=== PATIENT | female | born 1980 | race Caucasian/White ===

== ENCOUNTER 2018-08-03 05:56 | Outpatient (CLI) | END 2018-08-03 06:20 | disposition short-term general hospital (02) | LOC: AMBL 05:56 | PROVIDERS: ATTEND Internal Medicine Geriatric Medicine | DX: T40.4X1A Poisoning by other synthetic narcotics, accidental (unintentional), initial encounter (principal); T42.4X1A Poisoning by benzodiazepines, accidental (unintentional), initial encounter; R40.20 Unspecified coma; R00.0 Tachycardia, unspecified; R06.89 Other abnormalities of breathing; R11.0 Nausea ==